=== PATIENT | female | born 1990 | race Caucasian/White ===

== ENCOUNTER → 2016-08-18 | Outpatient (CLI) | payer OTHER ==
--- NOTE | 2016-08-18 11:42 | US ---
EXAMINATION TYPE: US OB <= 14 wk fetus DATE OF EXAM: 08/18/2016 11:18 AM COMPARISON: No previous CLINICAL HISTORY: Confirm dates. EXAM PERFORMED: Transabdominal (TA) EXAM MEASUREMENTS: GESTATIONAL AGE / DATING Physician Established: Not established yet Dates by LMP: (7 weeks/6 days) EDC: 03/31/2017 Dates by First Scan: No previous Dates by Current Scan: ( 7 weeks/4 days) EDC: 04/02/2017 MATERNAL ANATOMY Uterus: 9.9 x 6.2 x 7.1cm Right Ovary: 3.0 x 2.6 x 2.2cm, 1.8cm hypoechoic cystic area with internal echoes Left Ovary: 2.6 x 1.2 x 1.3cm Post CDS / Adnexa: small amount of free fluid in posterior cul de sac Presence of free fluid: yes Presence of corpus luteal cyst: 1.8 x 1.6 x 1.3cm hypoechoic cystic area with internal echoes Presence of subchorionic bleed: no GESTATION / SURVEY CRL: 1.4cm (7 weeks/4 days) Yolk Sac (normal less than 6mm): 4.8mm Heart Rate: 159 bpm Rhythm: Normal IUP: Viable IUP Date of LMP: 06/24/2016 Beta HcG (if available): Not available at time of exam TECHNOLOGIST IMPRESSION: Viable single IUP measuring 7 weeks 4 days with a heart rate of 159bpm and an estimated delivery date of 04/02/2017, right ovary: 1.8cm hypoechoic cystic area with internal ech oes, small amount of free fluid in posterior cul de sac IMPRESSION: Viable intrauterine gestation with a gestational age of 7 weeks 4 days +/- 5 days. Estimated date of confinement based on this examination is 04/02/2017.
== END | disposition home or self-care (01) ==
LOC: RADUSWWP 10:54
PROVIDERS: ATTEND Obstetrics & Gynecology
DX: O26.841 Uterine size-date discrepancy, first trimester (principal); Z3A.01 Less than 8 weeks gestation of pregnancy
CPT/HCPCS: 76801

== ENCOUNTER 2016-09-18 15:49 | Emergency (ER) | payer OTHER ==
[2016-09-18 16:01] VITALS: RESP 16
[2016-09-18] MEDS ORDERED: SODIUM CHLORIDE 0.9% 1,000 ML IV STA (16:20)
--- NOTE | 2016-09-18 16:23 | ED ---
Abdominal Pain HPI - General Chief Complaint: Abdominal Pain Stated Complaint: 12 weeks / cramping Time Seen by Provider: 09/18/16 16:14 Source: patient, RN notes reviewed Mode of arrival: ambulatory Limitations: no limitations - History of Present Illness Initial Comments: 26 yo female presents to the emergency department with a chief complaint of abdominal pain in . Patient states she is about 12 weeks . Patient states that she is a . Patient states she has any fever chills there's been no vaginal bleeding. Patient states that she called her doctor he did not answer so she came here. Patient states she has an ultrasound very early in and everything did seem to be going to plan. Patient states she was concerned due to the new pain so she thought that she should be evaluated. Patient denies any recent fever, chills, shortness of breath, chest pain, back pain, nausea vomiting, numbness or tingling, dysuria or hematuria, constipation or diarrhea, headaches or visual changes, or any other current symptoms. - Related Data Home Medications Medication Instructions Recorded Confirmed Metoclopramide [Reglan] 10 mg PO Q6H PRN 09/18/16 09/18/16 Pnv with Ca,No.72/Iron/FA 1 tab PO DAILY 09/18/16 09/18/16 [ Plus Tablet] Allergies Allergy/AdvReac Type Severity Reaction Status Date / Time No Known Allergies Allergy Verified 09/18/16 16:25 Review of Systems ROS Statement: Those systems with pertinent positive or pertinent negative responses have been documented in the HPI. ROS Other: All systems not noted in ROS Statement are negative. Past Medical History Past Medical History: No Reported History History of Any Multi-Drug Resistant Organisms: None Reported Past Surgical History: No Surgical Hx Reported Past Psychological History: No Psychological Hx Reported Smoking Status: Current every day smoker Past Alcohol Use History: Occasional Past Drug Use History: None Reported General Exam - General Exam Comments Initial Comments: General: The patient is awake and alert, in no distress, and does not appear acutely ill. Eye: Pupils are equal, round and reactive to light, extra-ocular movements are intact; there is normal conjunctiva bilaterally. No signs of icterus. Ears, nose, mouth and throat: There are moist mucous membranes and no oral lesions. Neck: The neck is supple, there is no tenderness. Cardiovascular: There is a regular rate and rhythm. No murmur, rub or gallop is appreciated. Respiratory: Lungs are clear to auscultation, respirations are non-labored, breath sounds are equal. No wheezes, stridor, rales, or rhonchi. Gastrointestinal: Soft, non-distended, non-tender abdomen without masses or organomegaly noted. There is no rebound or guarding present. No CVA tenderness. Bowel sounds are unremarkable. Back: There is no tenderness to palpation in the midline. There is no obvious deformity. No rashes noted. Musculoskeletal: Normal ROM, no tenderness, There is no pedal edema. There is no calf tenderness or swelling. Sensation intact. Pulses equal bilaterally 2+. Neurological: CN II-XII intact, There are no obvious motor or sensory deficits. Coordination appears grossly intact. Speech is normal. Skin: Skin is warm and dry and no rashes or lesions are noted. Psychiatric: Cooperative, appropriate mood & affect, normal judgment. Limitations: no limitations Course Vital Signs 09/18/16 15:59 Temperature 98.4 F Pulse Rate 98 Respiratory 16 Rate Blood Pressure 134/73 O2 Sat by Pulse 100 Oximetry Medical Decision Making - Medical Decision Making 26-year-old female presents to emergency room chief complaint of abdominal pain in . This patient's ultrasound was reviewed as well as blood work. As we discussed results. Blood pressure does appear to be stable. Patient had mildly elevated liver enzymes. She was informed this. This discussed continue Tylenol for pain control. We discussed return parameters and follow-up. Patient states she understood all cushions were answered. She'll be discharged home. - Lab Data Result diagrams: 09/18/16 16:39 09/18/16 16:39 Lab Results 09/18/16 09/18/16 09/18/16 Range/Units 16:39 16:39 16:39 WBC 9.6 (3.8-10.6) k/uL RBC 4.21 (3.80-5.40) m/uL Hgb 13.0 (11.4-16.0) gm/dL Hct 38.1 (34.0-46.0) % MCV 90.4 (80.0-100.0) fL MCH 30.8 (25.0-35.0) pg MCHC 34.1 (31.0-37.0) g/dL RDW 12.6 (11.5-15.5) % Plt Count 303 (150-450) k/uL Neutrophils % 67 % Lymphocytes % 26 % Monocytes % 4 % Eosinophils % 1 % Basophils % 0 % Neutrophils # 6.4 (1.3-7.7) k/uL Lymphocytes # 2.5 (1.0-4.8) k/uL Monocytes # 0.4 (0-1.0) k/uL Eosinophils # 0.1 (0-0.7) k/uL Basophils # 0.0 (0-0.2) k/uL Sodium 137 (137-145) mmol/L Potassium 3.7 (3.5-5.1) mmol/L Chloride 101 (98-107) mmol/L Carbon Dioxide 24 (22-30) mmol/L Anion Gap 12 mmol/L BUN 8 (7-17) mg/dL Creatinine 0.57 (0.52-1.04) mg/dL Est GFR (MDRD) Af Amer >60 (>60 ml/min/1.73 sqM) Est GFR (MDRD) Non-Af >60 (>60 ml/min/1.73 sqM) Glucose 96 (74-99) mg/dL Calcium 9.6 (8.4-10.2) mg/dL Total Bilirubin 0.6 (0.2-1.3) mg/dL AST 56 H (14-36) U/L ALT 58 H (9-52) U/L Alkaline Phosphatase 67 (38-126) U/L Total Protein 7.3 (6.3-8.2) g/dL Albumin 4.1 (3.5-5.0) g/dL Urine Color Urine Appearance (Clear) Urine pH (5.0-8.0) Ur Specific [place] (1.001-1.035) Urine Protein (Negative) Urine Glucose (UA) (Negative) Urine Ketones (Negative) Urine Blood (Negative) Urine Nitrate (Negative) Urine Bilirubin (Negative) Urine Urobilinogen (<2.0) mg/dL Ur Leukocyte Esterase (Negative) Urine RBC (0-5) /hpf Ur Squamous Epith Cells (0-4) /hpf Amorphous Sediment (None) /hpf Urine Bacteria (None) /hpf Blood Type A Positive Blood Type Recheck No 09/18/16 Range/Units 16:39 WBC (3.8-10.6) k/uL RBC (3.80-5.40) m/uL Hgb (11.4-16.0) gm/dL Hct (34.0-46.0) % MCV (80.0-100.0) fL MCH (25.0-35.0) pg MCHC (31.0-37.0) g/dL RDW (11.5-15.5) % Plt Count (150-450) k/uL Neutrophils % % Lymphocytes % % Monocytes % % Eosinophils % % Basophils % % Neutrophils # (1.3-7.7) k/uL Lymphocytes # (1.0-4.8) k/uL Monocytes # (0-1.0) k/uL Eosinophils # (0-0.7) k/uL Basophils # (0-0.2) k/uL Sodium (137-145) mmol/L Potassium (3.5-5.1) mmol/L Chloride (98-107) mmol/L Carbon Dioxide (22-30) mmol/L Anion Gap mmol/L BUN (7-17) mg/dL Creatinine (0.52-1.04) mg/dL Est GFR (MDRD) Af Amer (>60 ml/min/1.73 sqM) Est GFR (MDRD) Non-Af (>60 ml/min/1.73 sqM) Glucose (74-99) mg/dL Calcium (8.4-10.2) mg/dL Total Bilirubin (0.2-1.3) mg/dL AST (14-36) U/L ALT (9-52) U/L Alkaline Phosphatase (38-126) U/L Total Protein (6.3-8.2) g/dL Albumin (3.5-5.0) g/dL Urine Color Yellow Urine Appearance Cloudy H (Clear) Urine pH 7.0 (5.0-8.0) Ur Specific [place] 1.013 (1.001-1.035) Urine Protein Negative (Negative) Urine Glucose (UA) Negative (Negative) Urine Ketones Negative (Negative) Urine Blood Negative (Negative) Urine Nitrate Negative (Negative) Urine Bilirubin Negative (Negative) Urine Urobilinogen <2.0 (<2.0) mg/dL Ur Leukocyte Esterase Negative (Negative) Urine RBC 3 (0-5) /hpf Ur Squamous Epith Cells 2 (0-4) /hpf Amorphous Sediment Occasional H (None) /hpf Urine Bacteria Many H (None) /hpf Blood Type Blood Type Recheck Disposition Clinical Impression: Abdominal pain complicating , Elevated liver enzymes Disposition: HOME SELF-CARE Condition: Stable Instructions: Abdominal Pain in (ED) Additional Instructions: Please use medication as discussed. Please follow up with family doctor if symptoms have not improved over the next two days. Please return to the emergency room if your symptoms increase or worsen or for any other concerns. Referrals: Martina Givens MD [STAFF PHYSICIAN] - 1-2 days Time of Disposition: 17:29
[2016-09-18 16:52] LABS: Basophils % (A) 0 %; CH 31.9; CHCM 35.4; Eosinophils # (A) 0.1 k/uL (0-0.7); Eosinophils % (A) 1 %; HCT 38.1 % (34.0-46.0); HDW 2.44; Luc # (Auto) 0.14; Luc % (Auto) 2; Lymphocytes # (A) 2.5 k/uL (1.0-4.8); Lymphocytes % (A) 26 %; MCH 30.8 pg (25.0-35.0); MCHC 34.1 g/dL (31.0-37.0); MCV 90.4 fL (80.0-100.0); Monocytes # (A) 0.4 k/uL (0-1.0); Monocytes % (A) 4 %; Neutrophils # (A) 6.4 k/uL (1.3-7.7); Neutrophils % (A) 67 %; RBC 4.21 m/uL (3.80-5.40); RDW 12.6 % (11.5-15.5); WBC 9.6 k/uL (3.8-10.6); WBC (Perox) 9.52
[2016-09-18 16:55] LABS: Amorphous Sediment,Urine Occasional /hpf; Appearance,Urine Cloudy (Clear); Bacteria,Urine Many /hpf; Bilirubin,Urine Negative (Negative); Glucose,Urine (UA) Negative (Negative); Ketones,Urine Negative (Negative); Leukocyte Esterase,Urine Negative (Negative); Nitrite,Urine Negative (Negative); Particle Count 26790; Protein,Urine Negative (Negative); RBC,Urine 3 /hpf (0-5); Specific Gravity,Urine 1.013 (1.001-1.035); Squamous Epithelial Cell,Urine 2 /hpf (0-4); UA Billing (MACRO vs. MICRO) MICRO; Urobilinogen,Urine <2.0 mg/dL (<2.0)
[2016-09-18 17:07] LABS: ALT 58 U/L (9-52); AST 56 U/L (14-36); Alkaline Phosphatase 67 U/L (38-126); Anion Gap 12 mmol/L; Blood Urea Nitrogen 8 mg/dL (7-17); Calcium 9.6 mg/dL (8.4-10.2); Carbon Dioxide 24 mmol/L (22-30); Chloride 101 mmol/L (98-107); Glucose 96 mg/dL (74-99); Non-African American GFR(MDRD) >60 (>60 ml/min/1.73 sqM); Potassium 3.7 mmol/L (3.5-5.1); Sodium 137 mmol/L (137-145); Total Bilirubin 0.6 mg/dL (0.2-1.3); Total Protein 7.3 g/dL (6.3-8.2)
--- NOTE | 2016-09-18 17:16 | US ---
EXAMINATION TYPE: US OB <= 14 wk fetus DATE OF EXAM: 09/18/2016 5:05 PM COMPARISON: NONE CLINICAL HISTORY: Pain. vomiting and mausea EXAM PERFORMED: EXAM MEASUREMENTS: GESTATIONAL AGE / DATING Physician Established: (12 weeks/2 days) EDC: 03/31/2017 Dates by LMP: (12 weeks/2 days) EDC: 03/31/2017 Dates by First Scan: (12 weeks/0 days) EDC: 04/02/2017 Dates by Current Scan for: (12 weeks/4 days) EDC: 03/29/2017 MATERNAL ANATOMY Uterus: 14.5 x 7.8 x 8.9 cm Right Ovary: 2.6 x 1.6 x 1.6 cm Left Ovary: 3.5 x 1.9 x 2.3 cm Post CDS / Adnexa: wnl Presence of free fluid: none GESTATION / SURVEY CRL: 6.2 cm (12 weeks/4 days) Yolk Sac (normal less than 6mm): not seen Heart Rate: 165 bpm Rhythm: Normal IUP: Viable IUP Date of LMP: 06/24/2016 TECHNOLOGIST IMPRESSION: viable IUP that correlates with LMP and prior scans IMPRESSION: There is satisfactory growth compared to the last exam of 08/18/2016. I see no complicating process.
[2016-09-18 17:50] VITALS: BP 124/70; PULSE 72; TEMP 97.8
[2016-09-18 18:20] LABS: HCG,Quantitative Serum 70430.9 mIU/mL
== END 2016-09-18 17:49 | disposition home or self-care (01) ==
LOC: EC 15:49
DX: O26.891 Other specified pregnancy related conditions, first trimester (principal); R10.9 Unspecified abdominal pain; R74.8 Abnormal levels of other serum enzymes; O99.331 Smoking (tobacco) complicating pregnancy, first trimester; F17.200 Nicotine dependence, unspecified, uncomplicated; Z3A.12 12 weeks gestation of pregnancy
CPT/HCPCS: 36415; 76801; 80053; 81001; 84702; 85025; 86900; 86901; 87086; 99284

== ENCOUNTER 2016-10-10 08:01 | Emergency (ER) | payer OTHER ==
[2016-10-10 08:06] VITALS: BP 118/56; PULSE 80
[2016-10-10] MEDS ORDERED: CARBAMIDE PEROXIDE 6.5% DROPS 15 ML BTL LEFT EAR STA (08:14)
--- NOTE | 2016-10-10 08:16 | ED ---
ENT HPI - General Chief complaint: ENT Stated complaint: ear pain Time Seen by Provider: 10/10/16 08:10 Source: patient, RN notes reviewed Mode of arrival: ambulatory Limitations: no limitations - History of Present Illness Initial comments: This a 26-year-old female presents emergency Department with chief complaint of left ear pain. Patient states started at 5 AM this morning. Patient states that since onset of pain. She states it feels full, her left ear keeps popping. She has had some cold-like symptoms including mild runny nose, cough and congestion in which her kids have also been sick. Patient denies fever, chills. Denies any headache, neck stiffness. Patient states she currently is taking a vitamin she is 16 weeks . Patient also states that she is a current smoker. Patient denies any nausea vomiting diarrhea. Patient states she uses Q-tips on a regular basis. - Related Data Home Medications Medication Instructions Recorded Confirmed Pnv with Ca,No.72/Iron/FA 1 tab PO DAILY 09/18/16 10/10/16 [ Plus Tablet] Previous Rx's Medication Instructions Recorded Amoxicillin 875 mg PO Q12HR #20 tablet 10/10/16 Allergies Allergy/AdvReac Type Severity Reaction Status Date / Time No Known Allergies Allergy Verified 09/18/16 16:25 Review of Systems ROS Statement: Those systems with pertinent positive or pertinent negative responses have been documented in the HPI. ROS Other: All systems not noted in ROS Statement are negative. Past Medical History Past Medical History: No Reported History History of Any Multi-Drug Resistant Organisms: None Reported Past Surgical History: No Surgical Hx Reported Past Psychological History: No Psychological Hx Reported Smoking Status: Current every day smoker Past Alcohol Use History: Occasional Past Drug Use History: None Reported General Exam Limitations: no limitations General appearance: alert, in no apparent distress Head exam: Present: atraumatic, normocephalic, normal inspection Eye exam: Present: normal appearance, PERRL, EOMI. Absent: scleral icterus, conjunctival injection, periorbital swelling ENT exam: Present: normal oropharynx, mucous membranes moist. Absent: normal exam, TM's normal bilaterally (Unable to visualize TM secondary to cerumen impaction), normal external ear exam (Cerumen impaction) Neck exam: Present: normal inspection, full ROM. Absent: tenderness, meningismus, lymphadenopathy Respiratory exam: Present: normal lung sounds bilaterally. Absent: respiratory distress, wheezes, rales, rhonchi, stridor Cardiovascular Exam: Present: regular rate, normal rhythm, normal heart sounds. Absent: systolic murmur, diastolic murmur, rubs, gallop, clicks Neurological exam: Present: alert Skin exam: Present: warm, dry, intact, normal color. Absent: rash Course Vital Signs 10/10/16 08:03 Temperature 96.8 F L Pulse Rate 80 Respiratory 17 Rate Blood Pressure 118/56 O2 Sat by Pulse 100 Oximetry Procedures - Ear Wax Removal Left Ear Cerumenolytic Used: other (deBrox) Ear Canal Irrigated by: RN Ear Canal Irrigated With: warm saline with H2O2 using syringe/angiocath Results: Re-examined: cerumen removed completely TM Visible: TM(s) erythematous Ear Canal: atraumatic Patient Tolerated Procedure: well, no complications Complications: no problems Medical Decision Making - Medical Decision Making 26-year-old female presented for left ear pain. Patient has cerumen impaction removed by RN. Patient's does have some erythema consistent with otitis media. Disposition Clinical Impression: Cerumen impaction, Otitis media Disposition: HOME SELF-CARE Condition: Stable Instructions: Earache (ED) Additional Instructions: You may take [id number] Tylenol as directed.Please return to the Emergency Department if symptoms worsen or any other concerns. Prescriptions: Amoxicillin 875 mg PO Q12HR #20 tablet Time of Disposition: 09:20
[2016-10-10 09:28] VITALS: RESP 18; TEMP 98.9
== END 2016-10-10 09:28 | disposition home or self-care (01) ==
LOC: EC 08:01
DX: O26.892 Other specified pregnancy related conditions, second trimester (principal); H61.22 Impacted cerumen, left ear; H66.92 Otitis media, unspecified, left ear; F17.200 Nicotine dependence, unspecified, uncomplicated; Z3A.16 16 weeks gestation of pregnancy
CPT/HCPCS: 99282

== ENCOUNTER 2017-01-21 13:02 | Outpatient (CLI) | payer OTHER ==
[2017-01-21 13:31] VITALS: BP 131/65; PULSE 108; RESP 18; TEMP 97.4
== END 2017-01-21 13:56 | disposition home or self-care (01) ==
LOC: FBPOP 13:02
PROVIDERS: ATTEND Obstetrics & Gynecology
DX: O26.93 Pregnancy related conditions, unspecified, third trimester (principal); Z3A.30 30 weeks gestation of pregnancy
CPT/HCPCS: 59025; G0463; 99213

== ENCOUNTER 2017-03-30 14:02 | Inpatient (IN) | payer OTHER ==
[2017-03-31] MEDS ORDERED: METHYLERGONOVINE 0.2 MG/ML 1 ML AMP IM PRN (06:49)
[2017-03-31] MEDS ORDERED: OXYTOCIN 10 UNIT/ML 1 ML VIAL IM PRN (06:49)
[2017-03-31] MEDS ORDERED: TERBUTALINE 1 MG/ML VIAL SQ PRN (06:49)
[2017-03-31] MEDS ORDERED: CARBOPROST TROMETHAMINE 250 MCG/ML 1 ML AMP IM PRN (06:49)
[2017-03-31] MEDS ORDERED: LIDOCAINE 1% (PF) 10 MG/ML (30 ML SDV) SQ PRN (06:49)
[2017-03-31] MEDS: LACTATED RINGERS 1,000 ML IV SCH ×4 (07:06→20:24)
[2017-03-31 07:08] LABS: Basophils # (A) 0.1 k/uL (0-0.2); Basophils % (A) 0 %; CH 33.5; CHCM 35.5; Eosinophils # (A) 0.2 k/uL (0-0.7); Eosinophils % (A) 1 %; HCT 34.6 % (34.0-46.0); HDW 2.59; HGB 11.8 gm/dL (11.4-16.0); Luc # (Auto) 0.18; Luc % (Auto) 2; Lymphocytes % (A) 25 %; MCH 32.3 pg (25.0-35.0); MCV 94.9 fL (80.0-100.0); Mean Platelet Volume 7.7; Monocytes # (A) 0.6 k/uL (0-1.0); Monocytes % (A) 5 %; Neutrophils # (A) 8.3 k/uL (1.3-7.7); Neutrophils % (A) 67 %; RBC 3.64 m/uL (3.80-5.40); RDW 13.5 % (11.5-15.5); WBC 12.2 k/uL (3.8-10.6); WBC (Perox) 12.41
[2017-03-31] MEDS: OXYTOCIN 20 UNITS/1000 ML NS 1,000 ML IV SCH ×2 (07:34→20:24)
[2017-03-31] MEDS ORDERED: BUTORPHANOL 1 MG/ML 1 ML VIAL IV PRN (07:37)
--- NOTE | 2017-03-31 07:42 | P.HPOB ---
History of Present Illness H&P Date: 03/31/17 Chief Complaint: 40-0/7, elective induction The patient is a 26-year-old 3 para 2001 admitted at 40-0/7 weeks by good dating parameters for an elective induction of labor with all signs reassuring. Her has been essentially uncomplicated and group B strep status is negative. She understands elective nature of the procedure but does have a relatively favorable cervix. Obstetrical history: 3 para 2001 with 2 term vaginal deliveries without Locations. Current statistics are listed in history present illness. EDC of 03/31/2017 was established by last menstrual period and confirmed by second trimester ultrasound. Laboratory workup demonstrates a blood type of A+ with a negative antibody screen. Rubella status is immune. The remainder of the laboratory workup was within normal limits. One hour Glucola was within normal limits and group B strep status is negative. Gynecologic history: Unremarkable with no history of any infections to include STDs. Review of Systems Review of systems is confined to history of present illness. Past Medical History Past Medical History: No Reported History History of Any Multi-Drug Resistant Organisms: None Reported Past Surgical History: No Surgical Hx Reported Smoking Status: Current every day smoker Medications and Allergies Home Medications Medication Instructions Recorded Confirmed Type Pnv,Calcium 72/Iron/Folic Acid 1 tab PO DAILY 09/18/16 03/31/17 History [ Plus Tablet] Allergies Allergy/AdvReac Type Severity Reaction Status Date / Time No Known Allergies Allergy Verified 03/31/17 06:49 Exam - Vital Signs Vital signs: Intake and Output 03/30/17 03/31/17 03/31/17 22:59 06:59 14:59 Other: Weight 66.678 kg In general, this is a well-developed, well-nourished white female in no acute distress. Her heart has a regular rhythm and rate without murmur. Her lungs are clear to auscultation bilaterally in all singh. Her abdomen is gravid, nondistended, has normal active bowel sounds, is soft, nontender, and without any palpable masses aside from uterine fundus. Her extremities are without any cyanosis, clubbing, or significant edema and are nontender to palpation bilaterally. Digital cervical examination demonstrates her cervix to be 2+ centimeters dilated, approximately 50% effaced, the vertex in presentation at - 2 station though the cervix is posterior. Artificial rupture of membranes is carried out demonstrating clear fluid. Results Result Diagrams: 03/31/17 06:55 Abnormal Lab Results - Last 24 Hours (Table) 03/31/17 Range/Units 06:55 WBC 12.2 H (3.8-10.6) k/uL RBC 3.64 L (3.80-5.40) m/uL Neutrophils # 8.3 H (1.3-7.7) k/uL Assessment and Plan (1) Term Status: Acute Plan: The patient has been admitted for essentially elective induction. The risks and complications elective induction of been thoroughly discussed including the risk for section which may be slightly increased under the elective circumstances. She understands these risks and agrees to proceed. She is a good candidate for either IV or epidural analgesia, whichever she may choose. She will continue to have close maternal and surveillance and expectant management will be practiced.
[2017-03-31 08:41] VITALS: BMI 26.9
[2017-03-31] MEDS ORDERED: BUPIVACAINE (PF) 0.25% 30 ML VIAL ONE (12:34)
[2017-03-31] MEDS ORDERED: SODIUM CHLORIDE 0.9% 100 ML BAG ONE (12:34)
[2017-03-31] MEDS ORDERED: fentaNYL (PF) 50 MCG/ML 5 ML AMP ONE (12:34)
[2017-03-31] MEDS ORDERED: diphenhydrAMINE 25 MG CAP PO PRN (15:13)
[2017-03-31] MEDS ORDERED: diphenhydrAMINE 50 MG/ML 1 ML VIAL IVP PRN ×2 (15:13)
[2017-03-31] MEDS ORDERED: ZOLPIDEM 5 MG TAB PO PRN (15:13)
[2017-03-31] MEDS ORDERED: BENZOCAINE/MENTHOL SPRAY 1 GM/SPRAY AEROSOL TOPICAL PRN (15:13)
[2017-03-31] MEDS ORDERED: ACETAMINOPHEN TAB 325 MG TAB PO PRN (15:13)
[2017-03-31] MEDS ORDERED: LANOLIN CREAM 5 GM TUBE TOPICAL PRN (15:13)
[2017-03-31] MEDS ORDERED: SIMETHICONE 80 MG CHEWABLE PO PRN (15:13)
[2017-03-31] MEDS ORDERED: HYDROCORTISONE 2.5% RECTAL CREAM 30 GM TUBE RECTAL PRN (15:13)
[2017-03-31] MEDS ORDERED: WITCH HAZEL 1 EACH MED..PAD TOPICAL PRN (15:13)
[2017-03-31] MEDS ORDERED: diphenhydrAMINE 50 MG CAP PO PRN (15:13)
--- NOTE | 2017-03-31 15:13 | P.PROBDLV ---
Vaginal Delivery Note - . Vaginal Delivery Note: Vy is a very pleasant 26-year-old 3 para 2001 at 40-0/7 weeks estimated date of confinement of 817. She presented earlier today for elective induction of labor. Preoperative diagnosis intrauterine at 40-0/7 weeks Postoperative diagnosis same Procedure normal spontaneous vaginal delivery, amniotomy, Pitocin induction of labor Surgeon Cheryl Cope DO Estimated blood loss 300 mL Anesthesia epidural Findings male in occiput anterior presentation delivered over intact perineum, at 1446, Apgars 9 and 9 at one and 5 minutes respectively. Weight of 7 lbs. 7 oz. Placenta delivered spontaneously intact with a three-vessel cord. A clitoral laceration was noted to be hemostatic no repair was done at this time. Vaginal vault was inspected and no lacerations were appreciated. Complications none Specimen placenta Mother and tolerated delivery well and are resting comfortably
[2017-03-31] MEDS ORDERED: BUPIVACAINE (PF) 0.25% 25 ML, fentaNYL (PF) 200 MCG in SODIUM CHLORIDE 0.9% 71 ML EPIDURAL ONE (16:05)
[2017-03-31] MEDS: IBUPROFEN 600 MG TAB PO PRN (16:06)
[2017-03-31] MEDS ORDERED: LIDOCAINE 1% INJ 10MG/ML (20 ML MDV) SQ ONE (17:25)
[2017-03-31] MEDS: Acetaminophen-Codeine 300-30mg TAB PO PRN ×2 (17:35→22:01)
[2017-03-31] MEDS: SENNOSIDES-DOCUSATE SODIUM 1 EACH TAB PO SCH (20:23)
[2017-04-01] MEDS: IBUPROFEN 600 MG TAB PO PRN ×3 (00:14→15:13)
[2017-04-01] MEDS: Acetaminophen-Codeine 300-30mg TAB PO PRN ×2 (04:25→10:34)
[2017-04-01] MEDS: SENNOSIDES-DOCUSATE SODIUM 1 EACH TAB PO SCH (08:04)
--- NOTE | 2017-04-01 08:21 | P.PNOBGVD ---
Subjective - Subjective Principal diagnosis: s/p PPD #1 Patient reports: Reports appetite normal, Reports voiding normally, Reports pain well controlled, Reports ambulating normally [place]: doing well Objective - Latest Vital Signs Latest vital signs: Vital Signs Temp Pulse Resp BP Pulse Ox 04/01/17 04:00 98.1 F 68 18 115/64 100 04/01/17 00:00 98.2 F 73 20 110/60 100 03/31/17 20:00 98.1 F 77 20 108/70 98 03/31/17 16:50 94 16 109/63 03/31/17 16:20 82 16 119/56 03/31/17 15:49 81 16 113/56 03/31/17 15:34 99 16 120/58 03/31/17 15:19 89 20 121/54 03/31/17 15:04 96.8 F L 100 18 139/67 03/31/17 08:21 97.2 F L 95 16 121/75 Intake and Output 03/31/17 04/01/17 04/01/17 22:59 06:59 14:59 Intake Total 16 Balance 16 Intake: Oral 16 - Exam Lungs: bilateral: normal Extremities: Present: normal Abdomen: Present: normal appearance Uterus: Present: firm (below the umbilicus) Assessment and Plan (1) (spontaneous vaginal delivery) Narrative/Plan: Vy is doing well. she is PPD #1 s/p . she is ambulating and voiding without difficulty. no nausea or vomitting and is tolerating a regualr diet. Pain is controlled with po meds. she is , but struggling with latch. lochia is moderate. Current Visit: Yes Status: Acute Code(s): O80 - ENCOUNTER FOR FULL-TERM UNCOMPLICATED DELIVERY SNOMED Code(s): 55508824 (2) Term Current Visit: Yes Status: Acute Code(s): Z34.80 - ENCOUNTER FOR SUPRVSN OF NORMAL , UNSP TRIMESTER SNOMED Code(s): 72180527
[2017-04-01 10:03] VITALS: RESP 16
--- NOTE | 2017-04-01 13:08 | P.DS ---
Providers Date of admission: 03/31/17 06:37 Expected date of discharge: 04/01/17 Attending physician: Nehal Cope Primary care physician: Stated None - Discharge Diagnosis(es) (1) (spontaneous vaginal delivery) Vy is a very pleasant 26-year-old 3 now para 3003 that presented to labor and delivery for an elective induction of labor. She progressed through labor well after amniotomy and augmentation with Pitocin and became complete lead dilated. She had a spontaneous vaginal delivery of a viable male at 1446. Apgars 8 and 9 at one and 5 minutes respectively. Patient has done well , breast-feeding without difficulty. She is ambulatory and voiding without difficulty. She states her pain is well controlled. She is tolerating a regular diet without nausea or vomiting. Current Visit: Yes Status: Acute (2) Term Current Visit: Yes Status: Acute Patient Condition at Discharge: Good Plan - Discharge Summary New Discharge Prescriptions: No Action Pnv,Calcium 72/Iron/Folic Acid [ Plus Tablet] 1 tab PO DAILY Discharge Medication List Pnv,Calcium 72/Iron/Folic Acid [ Plus Tablet] 1 tab PO DAILY 09/18/16 [ History] Follow up Appointment(s)/Referral(s): Nehal Cope DO [Doctor of Osteopathic Medicine] - 6 Weeks Discharge Disposition: HOME SELF-CARE
[2017-04-01 17:40] VITALS: BP 109/60; PULSE 82; TEMP 98
== END 2017-04-01 17:30 | disposition home or self-care (01) | DRG 775 ==
LOC: 4FBP 03-31 06:37
PROVIDERS: ADMIT Obstetrics & Gynecology Obstetrics; ATTEND Obstetrics & Gynecology Obstetrics
PROC: 10E0XZZ Delivery of Products of Conception, External Approach (ICD-10-PCS; principal; 2017-03-31)
PROC: 3E033VJ Introduction of Other Hormone into Peripheral Vein, Percutaneous Approach (ICD-10-PCS; 2017-03-31)
PROC: 10907ZC Drainage of Amniotic Fluid, Therapeutic from Products of Conception, Via Natural or Artificial Opening (ICD-10-PCS; 2017-03-31)
DX: O99.334 Smoking (tobacco) complicating childbirth (principal); O71.89 Other specified obstetric trauma; Z37.0 Single live birth; Z3A.40 40 weeks gestation of pregnancy
CPT/HCPCS: 85025

== ENCOUNTER 2023-10-22 11:49 | Observation (INO) | payer OTHER ==
[2023-10-22 12:36] LABS: Basophils % (A) 1 %; Eosinophils % (A) 0 %; HCT 44.2 % (34.0-46.0); HGB 15.1 gm/dL (11.4-16.0); Lymphocytes # (A) 2.5 k/uL (1.0-4.8); Lymphocytes % (A) 41 %; MCH 31.8 pg (25.0-35.0); MCHC 34.2 g/dL (31.0-37.0); MCV 92.9 fL (80.0-100.0); Mean Platelet Volume 7.3; Monocytes # (A) 0.3 k/uL (0-1.0); Monocytes % (A) 4 %; Neutrophils # (A) 3.1 k/uL (1.3-7.7); Neutrophils % (A) 50 %; Platelet Count 204 k/uL (150-450); RBC 4.75 m/uL (3.80-5.40); RDW 12.5 % (11.5-15.5); WBC 6.1 k/uL (3.8-10.6)
[2023-10-22] MEDS: HYDROmorphone 0.5 MG/0.5 ML SYRINGE IVP STA ×2 (12:40→15:43)
[2023-10-22] MEDS: SODIUM CHLORIDE 0.9% 1,000 ML IV STA (12:43)
[2023-10-22] MEDS: SODIUM CHLORIDE 0.9% 500 ML 500 ML IV STA (12:43)
[2023-10-22] MEDS: ONDANSETRON 4 MG/2 ML VIAL IVP STA ×2 (12:44→14:21)
[2023-10-22] MEDS: DIPHENOX-ATROP 2.5-0.025 MG 1 EACH TAB PO STA ×2 (12:59→13:08)
[2023-10-22 13:02] LABS: ALT 53 U/L (4-34); AST 59 U/L (14-36); African American GFR (CKD) >90 (>60 ml/min/1.73 sqM); Albumin 4.3 g/dL (3.5-5.0); Alkaline Phosphatase 136 U/L (38-126); Amylase 91 U/L (30-110); Anion Gap 8 mmol/L; Blood Urea Nitrogen 18 mg/dL (7-17); Calcium 9.4 mg/dL (8.4-10.2); Carbon Dioxide 20 mmol/L (22-30); Chloride 111 mmol/L (98-107); Glucose 90 mg/dL (74-99); Lipase 153 U/L (23-300); Non-African American GFR(CKD) >90 (>60 ml/min/1.73 sqM); Potassium 4.1 mmol/L (3.5-5.1); Sodium 139 mmol/L (137-145); Total Bilirubin 0.6 mg/dL (0.2-1.3); Total Protein 7.1 g/dL (6.3-8.2)
[2023-10-22 13:03] LABS: Appearance,Urine Clear (Clear); Bilirubin,Urine Negative (Negative); Blood,Urine Negative (Negative); Color,Urine Yellow; Glucose,Urine (UA) Negative (Negative); Ketones,Urine Negative (Negative); Leukocyte Esterase,Urine Negative (Negative); Nitrite,Urine Negative (Negative); Protein,Urine Trace (Negative); Specific Gravity,Urine 1.035 (1.001-1.035); Urobilinogen,Urine <2.0 mg/dL (<2.0)
--- NOTE | 2023-10-22 13:32 | ED ---
General Adult HPI - General Chief complaint: Abdominal Pain Stated complaint: Abd pain, Flu A+ Time Seen by Provider: 10/22/23 12:00 Source: patient, RN notes reviewed, old records reviewed Mode of arrival: ambulatory Limitations: no limitations - History of Present Illness Initial comments: This is a 33-year-old female who presents to the emergency department complaining of nausea vomiting diarrhea for 5 days. Patient states she was told she had flu 5 days ago but she never had any cough sore throat difficulty breathing or congestion. Patient states she has some epigastric abdominal pain. Patient states the pain is a burning sensation. Patient denies any radiation to the back. Patient Nuys any chest pain. Patient Nuys any shortness of artemio ath. Patient denies any fever or chills. - Related Data Home Medications Medication Instructions Recorded Confirmed Pnv,Calcium 72/Iron/Folic Acid 1 tab PO DAILY 09/18/16 03/31/17 [ Plus Tablet] Allergies Allergy/AdvReac Type Severity Reaction Status Date / Time No Known Allergies Allergy Verified 10/22/23 12:03 Review of Systems ROS Statement: Those systems with pertinent positive or pertinent negative responses have been documented in the HPI. ROS Other: All systems not noted in ROS Statement are negative. Past Medical History Past Medical History: No Reported History History of Any Multi-Drug Resistant Organisms: None Reported Past Surgical History: No Surgical Hx Reported Additional Past Surgical History / Comment(s): right hand surgery, Past Psychological History: Anxiety, Depression Smoking Status: Current every day smoker Past Alcohol Use History: Occasional Past Drug Use History: Marijuana - Past Family History Father Family Medical History: No Reported History General Exam - General Exam Comments Initial Comments: GENERAL: Patient is well-developed and well-nourished. Patient is nontoxic and well- hydrated and is in mild distress. ENT: Neck is soft and supple. No significant lymphadenopathy is noted. Oropharynx is clear. Moist mucous membranes. Neck has full range of motion without eliciting any pain. EYES: The sclera were anicteric and conjunctiva were pink and moist. Extraocular movements were intact and pupils were equal round and reactive to light. Eyelids were unremarkable. PULMONARY: Unlabored respirations. Good breath sounds bilaterally. No audible rales rhonchi or wheezing was noted. CARDIOVASCULAR: There is a regular rate and rhythm without any murmurs gallops or rubs. ABDOMEN: Mild epigastric tenderness SKIN: Skin is clear with no lesions or rashes and otherwise unremarkable. NEUROLOGIC: Patient is alert and oriented x3. Cranial nerves II through XII are grossly intact. Motor and sensory are also intact. Normal speech, volume and content. Symmetrical smile. MUSCULOSKELETAL: Normal extremities with adequate strength and full range of motion. No lower extremity swelling or edema. No calf tenderness. LYMPHATICS: No significant lymphadenopathy is noted PSYCHIATRIC: Normal psychiatric evaluation. Limitations: no limitations Course Vital Signs 10/22/23 10/22/23 12:00 14:03 Temperature 98 F Pulse Rate 78 87 Respiratory 18 18 Rate Blood Pressure 144/92 139/96 O2 Sat by Pulse 99 100 Oximetry Medical Decision Making - Medical Decision Making Was pt. sent in by a medical professional or institution (, PA, [employer], urgent care, hospital, or assisted...) When possible be specific @ -No Did you speak to anyone other than the patient for history (EMS, parent, family, police, friend...)? What history was obtained from this source @ -No Did you review nursing and triage notes (agree or disagree)? Why? @ -I reviewed and agree with nursing and triage notes Were old charts reviewed (outside hosp., previous admission, EMS record, old EKG, old radiological studies, urgent care reports/EKG's, assisted records)? Report findings @ -No old charts were reviewed Differential Diagnosis (chest pain, altered mental status, abdominal pain women, abdominal pain men, vaginal bleeding, weakness, fever, dyspnea, syncope, headache, dizziness, GI bleed, back pain, seizure, CVA, palpatations, mental health, musculoskeletal)? @ -Pancreatitis, cholecystitis, gastritis, gastroenteritis, this is not an all- inclusive list EKG interpreted by me (3pts min.). @ -As above X-rays interpreted by me (1pt min.). @ -None done CT interpreted by me (1pt min.). @ -CT of the abdomen pelvis shows no acute abnormality U/S interpreted by me (1pt. min.). @ -None done What testing was considered but not performed or refused? (CT, X-rays, U/S, labs)? Why? @ -None What meds were considered but not given or refused? Why? @ -None Did you discuss the management of the patient with other professionals (professionals i.e. , PA, [employer], lab, RT, psych nurse, social worker masters, senior sharepoint architect, teacher, fare enforcement officer, caseworker intake)? Give summary @ -No Was smoking cessation discussed for >3mins.? @ -No Was critical care preformed (if so, how long)? @ -No Were there social determinants of health that impacted care today? How? (Homelessness, low income, unemployed, alcoholism, drug addiction, transportati on, low edu. Level, literacy, decrease access to med. care, snf, rehab)? @ -No Was there de-escalation of care discussed even if they declined (Discuss DNR or withdrawal of care, Hospice)? DNR status @ -No What co-morbidities impacted this encounter? (DM, HTN, Smoking, COPD, CAD, Cancer, CVA, ARF, Chemo, Hep., AIDS, mental health diagnosis, sleep apnea, morbid obesity)? @ -None Was patient admitted / discharged? Hospital course, mention meds given and route, prescriptions, significant lab abnormalities, going to OR and other pertinent info. @ -Patient received multiple pain medications and antiemetics and was no longer nauseous but continued to have pain even though reproducible pain was not exhibited. Undiagnosed new problem with uncertain prognosis? @ -No Drug Therapy requiring intensive monitoring for toxicity (Heparin, Nitro, Insulin, Cardizem)? @ -No Were any procedures done? @ -No Diagnosis/symptom? @ -Gastroenteritis Acute, or Chronic, or Acute on Chronic? @ -Acute Uncomplicated (without systemic symptoms) or Complicated (systemic symptoms)? @ -Complicated Side effects of treatment? @ -No Exacerbation, Progression, or Severe Exacerbation? @ -No Poses a threat to life or bodily function? How? (Chest pain, [place], [place], pneumonia, PE, COPD, DKA, ARF, appy, cholecystitis, CVA, Diverticulitis, Homicidal, Suicidal, threat to staff... and all critical care pts) @ -No Diagnosis/symptom? @ -Abdominal pain Acute, or Chronic, or Acute on Chronic? @ -Acute Uncomplicated (without systemic symptoms) or Complicated (systemic symptoms)? @ -Complicated Side effects of treatment? @ -None Exacerbation, Progression, or Severe Exacerbation] @ -No Poses a threat to life or bodily function? @ -No - Lab Data Result diagrams: 10/22/23 12:20 10/22/23 12:20 Lab Results 10/22/23 10/22/23 10/22/23 Range/Units 12:20 12:20 12:20 WBC 6.1 (3.8-10.6) k/uL RBC 4.75 (3.80-5.40) m/uL Hgb 15.1 (11.4-16.0) gm/dL Hct 44.2 (34.0-46.0) % MCV 92.9 (80.0-100.0) fL MCH 31.8 (25.0-35.0) pg MCHC 34.2 (31.0-37.0) g/dL RDW 12.5 (11.5-15.5) % Plt Count 204 (150-450) k/uL MPV 7.3 Neutrophils % 50 % Lymphocytes % 41 % Monocytes % 4 % Eosinophils % 0 % Basophils % 1 % Neutrophils # 3.1 (1.3-7.7) k/uL Lymphocytes # 2.5 (1.0-4.8) k/uL Monocytes # 0.3 (0-1.0) k/uL Eosinophils # 0.0 (0-0.7) k/uL Basophils # 0.0 (0-0.2) k/uL Sodium 139 (137-145) mmol/L Potassium 4.1 (3.5-5.1) mmol/L Chloride 111 H (98-107) mmol/L Carbon Dioxide 20 L (22-30) mmol/L Anion Gap 8 mmol/L BUN 18 H (7-17) mg/dL Creatinine 0.61 (0.52-1.04) mg/dL Est GFR (CKD-EPI)AfAm >90 (>60 ml/min/1.73 sqM) Est GFR (CKD-EPI)NonAf >90 (>60 ml/min/1.73 sqM) Glucose 90 (74-99) mg/dL Plasma Lactic Acid Quinten (0.7-2.0) mmol/L Calcium 9.4 (8.4-10.2) mg/dL Total Bilirubin 0.6 (0.2-1.3) mg/dL AST 59 H (14-36) U/L ALT 53 H (4-34) U/L Alkaline Phosphatase 136 H (38-126) U/L Total Protein 7.1 (6.3-8.2) g/dL Albumin 4.3 (3.5-5.0) g/dL Amylase 91 (30-110) U/L Lipase 153 (23-300) U/L Urine Color Yellow Urine Appearance Clear (Clear) Urine pH 7.0 (5.0-8.0) Ur Specific [place] 1.035 (1.001-1.035) Urine Protein Trace H (Negative) Urine Glucose (UA) Negative (Negative) Urine Ketones Negative (Negative) Urine Blood Negative (Negative) Urine Nitrite Negative (Negative) Urine Bilirubin Negative (Negative) Urine Urobilinogen <2.0 (<2.0) mg/dL Ur Leukocyte Esterase Negative (Negative) 10/22/23 Range/Units 12:20 WBC (3.8-10.6) k/uL RBC (3.80-5.40) m/uL Hgb (11.4-16.0) gm/dL Hct (34.0-46.0) % MCV (80.0-100.0) fL MCH (25.0-35.0) pg MCHC (31.0-37.0) g/dL RDW (11.5-15.5) % Plt Count (150-450) k/uL MPV Neutrophils % % Lymphocytes % % Monocytes % % Eosinophils % % Basophils % % Neutrophils # (1.3-7.7) k/uL Lymphocytes # (1.0-4.8) k/uL Monocytes # (0-1.0) k/uL Eosinophils # (0-0.7) k/uL Basophils # (0-0.2) k/uL Sodium (137-145) mmol/L Potassium (3.5-5.1) mmol/L Chloride (98-107) mmol/L Carbon Dioxide (22-30) mmol/L Anion Gap mmol/L BUN (7-17) mg/dL Creatinine (0.52-1.04) mg/dL Est GFR (CKD-EPI)AfAm (>60 ml/min/1.73 sqM) Est GFR (CKD-EPI)NonAf (>60 ml/min/1.73 sqM) Glucose (74-99) mg/dL Plasma Lactic Acid Quinten 0.8 (0.7-2.0) mmol/L Calcium (8.4-10.2) mg/dL Total Bilirubin (0.2-1.3) mg/dL AST (14-36) U/L ALT (4-34) U/L Alkaline Phosphatase (38-126) U/L Total Protein (6.3-8.2) g/dL Albumin (3.5-5.0) g/dL Amylase (30-110) U/L Lipase (23-300) U/L Urine Color Urine Appearance (Clear) Urine pH (5.0-8.0) Ur Specific [place] (1.001-1.035) Urine Protein (Negative) Urine Glucose (UA) (Negative) Urine Ketones (Negative) Urine Blood (Negative) Urine Nitrite (Negative) Urine Bilirubin (Negative) Urine Urobilinogen (<2.0) mg/dL Ur Leukocyte Esterase (Negative) Disposition Clinical Impression: Abdominal pain, Gastroenteritis Disposition: ADMITTED IP TO THIS HOSP Is patient prescribed a controlled substance at d/c from ED?: No Referrals: Jaime Joyner MD [Primary Care Provider] - 1-2 days Time of Disposition: 15:24
--- NOTE | 2023-10-22 13:35 | XR ---
EXAMINATION TYPE: XR chest 2V DATE OF EXAM: 10/22/2023 COMPARISON: None HISTORY: 33-year-old female with abdominal pain TECHNIQUE: PA and lateral views FINDINGS: The cardiomediastinal silhouette, aorta, and pulmonary vasculature are within normal limits. Lungs an d pleural spaces are clear. IMPRESSION: No acute cardiopulmonary process.
[2023-10-22] MEDS: KETOROLAC 15 MG/ML 1 ML VIAL IVP STA (14:21)
--- NOTE | 2023-10-22 15:19 | CT ---
EXAMINATION TYPE: CT abdomen pelvis w con DATE OF EXAM: 10/22/2023 COMPARISON: NONE HISTORY: 33-year-old female Abdominal pain, N/V pt states she feels like her insides are burning. Flu A+ TECHNIQUE: Contiguous axial scanning of the abdomen and pelvis following administration of 100 ml Iso harry 300 IV contrast. Delayed images through the kidneys and coronal/sagittal reconstructions perform ed. CT DLP: 584.4 mGycm Automated exposure control for dose reduction was used. FINDINGS: Heart normal size without pericardial effusion. Lung bases clear without pleural effusion. Liver borderline enlarged at 17.9 cm with a diminished attenuation. No focal lesion seen. Portal veno us system is patent. No biliary ductal dilatation. Gallbladder, adrenal glands, kidneys, and pancreas within normal limits. Multiple calcified granuloma s within the spleen. Suggestion of a tiny hiatal hernia. Jejunal fold thickening in the left side of the abdomen with scattered prominent flow in the left upp er quadrant. There is concurrent circumferential wall thickening of the ascending colon and proximal transverse co arian. Circumferential wall thickening also involves the distal sigmoid colon and rectum. No pericoloni c inflammatory change. No dilated small bowel, free fluid, or free air. No mesenteric or retroperitoneal lymphadenopathy. Bladder urine distended. Left-sided pelvic phlebolith. Uterus anteverted. Both ovaries are visualized . 1.6 cm dominant follicle or functional cyst in the left ovary. Bones: No osseous destructive process. IMPRESSION: 1. JEJUNAL FOLD THICKENING IN THE LEFT SIDE OF THE ABDOMEN AND SEGMENTS OF CIRCUMFERENTIAL THICKENING THROUGHOUT THE COLON. CORRELATE FOR A NONSPECIFIC, MILD TO MODERATE ENTEROCOLITIS. 2. TINY HIATAL HERNIA AND SOME FATTY INFILTRATION OF THE LIVER.
[2023-10-22] MEDS: SODIUM CHLORIDE 0.9% 1,000 ML IV ONE (15:43)
[2023-10-22] MEDS ORDERED: KETOROLAC 15 MG/ML 1 ML VIAL IVP PRN (15:46)
[2023-10-22] MEDS: ONDANSETRON 4 MG/2 ML VIAL IVP PRN (18:28)
[2023-10-22] MEDS: OSELTAMIVIR 75 MG CAP PO SCH (20:03)
[2023-10-22] MEDS: busPIRone HCl 10 MG TAB PO SCH (20:03)
[2023-10-22] MEDS: HYDROmorphone 1 MG/ML 1 ML SYRINGE IVP PRN (20:04)
[2023-10-22] MEDS: PANTOPRAZOLE 40 MG/10 ML VIAL IVP SCH (20:04)
[2023-10-22] MEDS: ACETAMINOPHEN TAB 325 MG TAB PO PRN (23:56)
[2023-10-23 07:26] VITALS: BP 116/76; PULSE 80; RESP 17; TEMP 98.3
[2023-10-23] MEDS: CITALOPRAM HYDROBROMIDE 10 MG TAB PO SCH (08:26)
--- NOTE | 2023-10-23 11:01 | P.HPIM ---
History of Present Illness Patient is a pleasant 33-year-old female came to the hospital with complaints of nausea vomiting diarrhea has been going on for 5 days since she was diagnosed with flu. Patient is influenza B positive patient has significant improvement in her clinical symptoms since yesterday and been doing much better and her nausea and epigastric burning sensation significantly improved after Protonix patient was complaining of severe epigastric burning sensation. Patient is feeling much better her labs are essentially within normal limits patient does not have much medical problems except for depression. REVIEW OF SYSTEMS: CONSTITUTIONAL: No fever, no malaise, no fatigue. HEENT: No recent visual problems or hearing problems. Denied any sore throat. CARDIOVASCULAR: No chest pain, orthopnea, PND, no palpitations, no syncope. PULMONARY: No shortness of breath, no cough, no hemoptysis. GASTROINTESTINAL: As mentioned in HPI NEUROLOGICAL: No headaches, no weakness, no numbness. HEMATOLOGICAL: Denies any bleeding or petechiae. GENITOURINARY: Denies any burning micturition, frequency, or urgency. MUSCULOSKELETAL/RHEUMATOLOGICAL: Denies any joint pain, swelling, or any muscle pain. ENDOCRINE: Denies any polyuria or polydipsia. The rest of the 14-point review of systems is negative. PHYSICAL EXAMINATION: GENERAL: The patient is alert and oriented x3, not in any acute distress. Well developed, well nourished. HEENT: Pupils are round and equally reacting to light. EOMI. No scleral icterus. No conjunctival pallor. Normocephalic, atraumatic. No pharyngeal erythema. No thyromegaly. CARDIOVASCULAR: S1 and S2 present. No murmurs, rubs, or gallops. PULMONARY: Chest is clear to auscultation, no wheezing or crackles. ABDOMEN: Soft, nontender, nondistended, normoactive bowel sounds. No palpable organomegaly. MUSCULOSKELETAL: No joint swelling or deformity. EXTREMITIES: No cyanosis, clubbing, or pedal edema. NEUROLOGICAL: Gross neurological examination did not reveal any focal deficits. SKIN: No rashes. Assessment and plan -Viral gastroenteritis evidenced on the CT scan secondary to viral illness/inf luenza. Received IV fluids -Influenza B upper respiratory infection which is improving -Stress ulcer secondary to influenza, patient is feeling much better after Protonix patient will be discharged on Protonix 20 mg twice a day for 2 weeks. -Depression patient can resume her home medications -Nicotine use: Counseling was provided Patient will be discharged today with prescription of 20 mg of Protonix twice a day for 2 weeks for stress ulcers Past Medical History Past Medical History: No Reported History History of Any Multi-Drug Resistant Organisms: None Reported Past Surgical History: No Surgical Hx Reported Additional Past Surgical History / Comment(s): right hand surgery, Past Anesthesia/Blood Transfusion Reactions: No Reported Reaction Past Psychological History: Anxiety, Depression Additional Psychological History / Comment(s): . Smoking Status: Current every day smoker Past Alcohol Use History: Occasional Past Drug Use History: Marijuana - Past Family History Father Family Medical History: No Reported History Medications and Allergies Home Medications Medication Instructions Recorded Confirmed Type Citalopram Hydrobromide [CeleXA] 10 mg PO DAILY 10/22/23 10/22/23 History busPIRone HCl [Buspar] 10 mg PO BID 10/22/23 10/22/23 History Pantoprazole Sodium [Protonix] 20 mg PO BID-W/MEALS #28 tab 10/23/23 Rx Allergies Allergy/AdvReac Type Severity Reaction Status Date / Time No Known Allergies Allergy Verified 10/22/23 16:09 Physical Exam Vitals: Vital Signs Temp Pulse Pulse Resp BP BP Pulse Ox 10/23/23 08:00 80 17 10/23/23 07:00 98.3 F 80 17 116/76 100 10/23/23 00:06 97.5 F L 82 16 135/84 99 10/22/23 19:07 98.0 F 100 16 136/86 100 10/22/23 18:33 77 16 10/22/23 16:54 98.1 F 77 16 133/96 99 10/22/23 16:37 67 18 138/93 100 10/22/23 15:40 65 20 142/98 10/22/23 14:03 87 18 139/96 100 10/22/23 12:00 98 F 78 18 144/92 99 Intake and Output 10/22/23 10/23/23 10/23/23 21:59 06:59 14:59 Other: Voiding Method Toilet # Voids Weight Results CBC & Chem 7: 10/22/23 12:20 10/22/23 12:20 Labs: Abnormal Lab Results - Last 24 Hours (Table) 10/22/23 10/22/23 10/22/23 Range/Units 12:20 12:20 15:52 Chloride 111 H (98-107) mmol/L Carbon Dioxide 20 L (22-30) mmol/L BUN 18 H (7-17) mg/dL AST 59 H (14-36) U/L ALT 53 H (4-34) U/L Alkaline Phosphatase 136 H (38-126) U/L Urine Protein Trace H (Negative) Influenza Type B (PCR) Detected A (Not Detectd) Thrombosis Risk Factor Assmnt - Choose All That Apply Any of the Below Risk Factors Present?: No Other Risk Factors: No Other congenital or acquired thrombophilia - If yes, enter type in comment: No Thrombosis Risk Factor Assessment Level: Very Low Risk
--- NOTE | 2023-10-23 11:01 | P.DS ---
Providers Date of admission: 10/22/23 15:30 Attending physician: Tonny Espana MD Primary care physician: Jaime Spanglerhven [facility] Course: Patient is a pleasant 33-year-old female came to the hospital with complaints of nausea vomiting diarrhea has been going on for 5 days since she was diagnosed with flu. Patient is influenza B positive patient has significant improvement in her clinical symptoms since yesterday and been doing much better and her nausea and epigastric burning sensation significantly improved after Protonix patient was complaining of severe epigastric burning sensation. Patient is feeling much better her labs are essentially within normal limits patient does not have much medical problems except for depression. PHYSICAL EXAMINATION: GENERAL: The patient is alert and oriented x3, not in any acute distress. Well developed, well nourished. HEENT: Pupils are round and equally reacting to light. EOMI. No scleral icterus. No conjunctival pallor. Normocephalic, atraumatic. No pharyngeal erythema. No thyromegaly. CARDIOVASCULAR: S1 and S2 present. No murmurs, rubs, or gallops. PULMONARY: Chest is clear to auscultation, no wheezing or crackles. ABDOMEN: Soft, nontender, nondistended, normoactive bowel sounds. No palpable organomegaly. MUSCULOSKELETAL: No joint swelling or deformity. EXTREMITIES: No cyanosis, clubbing, or pedal edema. NEUROLOGICAL: Gross neurological examination did not reveal any focal deficits. SKIN: No rashes. Assessment and plan -Viral gastroenteritis evidenced on the CT scan secondary to viral illness/influenza. Received IV fluids -Influenza B upper respiratory infection which is improving -Stress ulcer secondary to influenza, patient is feeling much better after Protonix patient will be discharged on Protonix 20 mg twice a day for 2 weeks. -Depression patient can resume her home medications -Nicotine use: Counseling was provided Patient will be discharged today with prescription of 20 mg of Protonix twice a day for 2 weeks for stress ulcers Plan - Discharge Summary Discharge Rx Participant: No New Discharge Prescriptions: New Pantoprazole Sodium [Protonix] 20 mg PO BID-W/MEALS #28 tab No Action busPIRone HCl [Buspar] 10 mg PO BID Citalopram Hydrobromide [CeleXA] 10 mg PO DAILY Discharge Medication List Citalopram Hydrobromide [CeleXA] 10 mg PO DAILY 10/22/23 [History] busPIRone HCl [Buspar] 10 mg PO BID 10/22/23 [History] Pantoprazole Sodium [Protonix] 20 mg PO BID-W/MEALS #28 tab 10/23/23 [Rx] Follow up Appointment(s)/Referral(s): Jaime Joyner MD [Primary Care Provider] - 3 Days Discharge Disposition: HOME SELF-CARE
[2023-10-23 11:17] LABS: HCT 40.1 % (37.2-46.3); HGB 13.4 g/dL (12.0-15.0); MCH 31.3 pg (27.0-32.0); MCHC 33.4 g/dL (32.0-37.0); MCV 93.7 FL (80.0-97.0); Mean Platelet Volume 9.5 FL (9.5-12.2); NRBC Per 100 WBC 0 X 10*3/uL (0.00-0.01); Platelet Count 183 X 10*3/uL (140-440); RBC 4.28 X 10*6/uL (4.10-5.20); RDW 12.8 % (11.5-14.5); WBC 5.14 X 10*3/uL (4.50-10.00)
[2023-10-23 11:18] LABS: Basophils # (A) 0.02 X 10*3/uL (0.00-0.10); Basophils % (A) 0.4 %; Eosinophils # (A) 0.01 X 10*3/uL (0.04-0.35); Eosinophils % (A) 0.2 %; Lymphocytes # (A) 3.81 X 10*3/uL (0.90-5.00); Lymphocytes % (A) 74.1 %; Monocytes # (A) 0.24 X 10*3/uL (0.20-1.00); Monocytes % (A) 4.7 %; Neutrophils # (A) 1.05 X 10*3/uL (1.80-7.70); Neutrophils % (A) 20.4 %
[2023-10-23 11:23] LABS: ALT 34 U/L (8-44); AST 30 U/L (13-35); Albumin 3.6 g/dL (3.8-4.9); Alkaline Phosphatase 94 U/L (41-126); BUN/Creat Ratio 13.86 Ratio (12.00-20.00); Blood Urea Nitrogen 9.7 mg/dL (9.0-27.0); Chloride 108 mmol/L (96-109); Glucose 86 mg/dL (70-110); Potassium 4.4 mmol/L (3.5-5.5); Sodium 142 mmol/L (135-145); Total Bilirubin 0.4 mg/dL (0.3-1.2); Total Protein 5.6 g/dL (6.2-8.2)
== END 2023-10-23 11:33 | disposition home or self-care (01) ==
LOC: EC 11:49 → 6NMEDSUR 15:30
PROVIDERS: ADMIT Internal Medicine; ATTEND Internal Medicine
DX: A08.4 Viral intestinal infection, unspecified (principal); J10.1 Influenza due to other identified influenza virus with other respiratory manifestations; K27.9 Peptic ulcer, site unspecified, unspecified as acute or chronic, without hemorrhage or perforation; F32.A Depression, unspecified; F41.9 Anxiety disorder, unspecified; F17.200 Nicotine dependence, unspecified, uncomplicated
CPT/HCPCS: 96376 ×3; 96375 ×2; 96361; 96374; 99285; 36415; 80053 ×2; 82150; 83605; 83690; 85025 ×2; 81003; 87636; 71046; 74177; G0378 ×2; J2405 ×2; J1170 ×3; J1885; C9113 ×2; Q9967